=== PATIENT | male | born 1985 | race Two or more races ===

== ENCOUNTER 2017-02-16 22:58 | Emergency (ER) | payer SELFPAY ==
[~2017-02-16] VITALS: Ht 188 cm; Wt 107.7 kg
[2017-02-16] MEDS ORDERED: NORV5TAB PO (23:06)
[2017-02-16] MEDS ORDERED: ATEN50TA2 PO (23:06)
[2017-02-17] MEDS ORDERED: ALPRAZolam 0.25 MG TAB PO ONE (00:30)
[2017-02-17 01:53] VITALS: BP 172/99
--- NOTE | 2017-02-17 09:59 | REP ---
Chest x-ray: Two views. History: Chest pain. Findings: The lungs are well inflated and clear. Pleural angles are sharp. Heart is not enlarged. Pulmonary vasculature is not increased. Impression: No active disease. Signed by Babak Mobley MD 02/17/2017 02:13 P
--- NOTE | 2017-02-19 07:48 | ECGEPIP ---
Stationary ECG Study [facility] - ED Test Date: 2017-02-17 Pat Name: RASHIDA JARA Department: Room: - Gender: M Division Order Analyst: nhan : 1985 Requested By: Pablo Jarquin Order Number: [id number] Reading MD: Mago Condon Measurements Intervals [place] Rate: 83 P: 53 IN: 163 QRS: 16 QRSD: 93 T: -6 QT: 342 QTc: 404 Interpretive Statements SINUS RHYTHM POSSIBLE LEFT ATRIAL ENLARGEMENT NONSPECIFIC T-WAVE ABNORMALITY NO PRIOR FOR COMPARISON Electronically Signed On 02-19-2017 7:48:06 EDT by Mago Condon
== END 2017-02-17 02:20 | disposition home or self-care (01) ==
LOC: M ED 22:58
DX: F41.9 Anxiety disorder, unspecified (principal); I10 Essential (primary) hypertension; M54.12 Radiculopathy, cervical region; Z87.891 Personal history of nicotine dependence; Z82.49 Family history of ischemic heart disease and other diseases of the circulatory system; Z79.899 Other long term (current) drug therapy

== ENCOUNTER 2019-07-11 01:44 | Emergency (ER) | payer BC, SELFPAY ==
[~2019-07-11] VITALS: Ht 188 cm; Wt 106.9 kg
[~2019-07-11 01:44] MED LIST: ATEN25TA PO; ATEN50TA2 PO; AUGM875T28 PO; ESOM1CAP5 PO; FLON1SPR NARES; LOSA25TA14 PO; MUCI600T37 PO; NORV5TAB PO; SERT-141 PO
[2019-07-11] MEDS ORDERED: NAPR-837 PO (05:39)
[2019-07-11] MEDS ORDERED: ROBA750T4 PO (05:39)
[2019-07-11] MEDS ORDERED: methocarbamoL 750 MG TAB PO ONE (05:45)
[2019-07-11] MEDS ORDERED: KETOROLAC 60 MG/2 ML VIAL (J1885) IM ONE (05:45)
[2019-07-11 06:04] VITALS: BP 129/69
== END 2019-07-11 06:06 | disposition home or self-care (01) ==
LOC: M ED 01:44
DX: M54.5 Low back pain (principal); Z79.899 Other long term (current) drug therapy
CPT/HCPCS: 96372; 99283; J1885

== ENCOUNTER → 2021-04-22 | Outpatient (REF) | payer SELFPAY ==
[~2021-04-22] MED LIST changes: +LOSA25TA13 PO; -LOSA25TA14 PO; +NAPR-837 PO; +ROBA750T4 PO
== END ==
LOC: M LAB REF 21:32
PROVIDERS: ATTEND Physician Assistant
DX: N48.89 Other specified disorders of penis (principal)